=== PATIENT | female | born 1965 | race Two or more races ===

== ENCOUNTER 2023-12-10 10:31 | Inpatient (IN) | payer OTHER, MEDICAID ==
[~2023-12-10] VITALS: Ht 167.6 cm; Wt 91.0 kg
[2023-12-10] VITALS (9 sets, daily range): BP systolic 65–118; BP diastolic 22–69; PULSE 69–131; RESP 18; TEMP 97.8; O2SAT 97–100
[~2023-12-10 10:31] MED LIST: NITR-52 PO
[2023-12-10] MEDS: ETOMIDATE (2MG/ML) 20ML VIAL IV ONE ×2 (10:45→13:34)
[2023-12-10] MEDS: SODIUM CHLORIDE 0.9% 500 ML IVB ONE (10:45)
[2023-12-10] MEDS: NOREPINEPHRINE 8 MG/250ML KIT 250 ML IV ONE (11:18)
[2023-12-10] MEDS: SUCCINYLCHOLINE CHLORIDE 20 MG/ML 10ML VIAL IV ONE ×2 (11:19→13:35)
[2023-12-10 11:27] LABS: Basophils # (auto) 0 10 ^3/uL (0-0.2); Basophils % (auto) 0.2 % (0.0-2.0); Eosinophils # (auto) 0 10 ^3/uL (0-0.8); Eosinophils % (auto) 0.1 % (0.0-7.0); Hematocrit 47.2 % (36.0-46.0); Hemoglobin 15.6 g/dL (12.2-16.2); Lymphocytes # (auto) 1.3 10 ^3/uL (0.4-5.4); Lymphocytes % (auto) 6.1 % (10.0-50.0); Mean Corpuscular Hemoglobin 29.6 pg (28.0-32.0); Mean Corpuscular Volume 89.7 fL (80.0-100.0); Monocytes # (auto) 0.6 10 ^3/uL (0-1.3); Monocytes % (auto) 2.9 % (0.0-12.0); Neutrophils # (auto) 19.1 10 ^3/uL (1.6-8.6); Neutrophils % (auto) 90.7 % (37.0-80.0); Red Blood Cells 5.27 10^6/uL (4.0-5.20); Red Cell Distribution Width 13.3 % (11.8-14.3); White Blood Cell 21.1 10^3/uL (4.4-10.8)
[2023-12-10 11:45] LABS: Urine Bacteria None Seen /hpf (None Seen)
[2023-12-10] MEDS: fentaNYL Drip 2500mCg/250mlNS 250 ML IV SCH (12:00)
[2023-12-10] MEDS: NOREPINEPHRINE 8 MG/250ML KIT 250 ML IV SCH (12:00)
[2023-12-10] MEDS: SODIUM CHLORIDE 0.9% 1,000 ML IV ONE ×2 (12:00→13:23)
[2023-12-10 12:01] LABS: Alanine Aminotransferase 371 U/L (7-40); Alkaline Phosphatase 110 U/L (46-116); Anion Gap 15 (5-15); Aspartate Aminotransferase 414 U/L (13-40); BUN/Creatinine Ratio 14.4 (10.0-20.0); Blood Alcohol < 3.0 mg/dL (<10); Blood Urea Nitrogen 28 mg/dL (9-23); Calcium 10.5 mg/dL (8.5-10.1); Carbon Dioxide 21 mmol/L (20-30); Chloride 103 mmol/L (98-107); Glucose 144 mg/dL (74-106); Magnesium 2.3 mg/dL (1.6-2.6); Sodium 139 mmol/L (136-145)
[2023-12-10 12:02] LABS: Bilirubin, Total 0.4 mg/dL (0.2-1.0); Total Protein 6.3 g/dL (5.7-8.2)
[2023-12-10 12:10] LABS: Urine Blood Negative /uL (Negative); Urine Clarity Clear (Clear); Urine Color Yellow (Yellow); Urine Protein, UAD Negative (Negative); Urine Specific Gravity 1.015 (1.001-1.035); Urine Urobilinogen Normal (Negative); Urine WBC 6 /hpf (0 - 5)
[2023-12-10 12:16] LABS: Amphetamine Screen, Urine Neg (NEGATIVE); Barbiturate Scree,Urine Neg (NEGATIVE); Benzodiazephine Screen, Urine Neg (NEGATIVE); Cannabinoid Screen, Urine Neg (NEGATIVE); Cocaine Screen, Urine Neg (NEGATIVE); Opiate Scree,Urine Neg (NEGATIVE); Phencyclidine Screen, Urine Neg (NEGATIVE)
[2023-12-10 12:35] LABS: Base Excess -4.8 mmol/L (-2.0-2.0)
[2023-12-10 12:35] LABS: Lactic Acid w/Reflex 9.3 mmol/L (0.4-2.0)
[2023-12-10 12:36] LABS: Potassium 5.8 mmol/L (3.5-5.1)
[2023-12-10] MEDS: cefTRIAXone 1GM/50ML D5W 50 ML IV ONE ×2 (13:13→19:52)
[2023-12-10] MEDS: VANCOMYCIN 1GM/200ML 200 ML IV ONE (13:13)
[2023-12-10] MEDS ORDERED: NITROGLYCERIN 0.4 MG SL TAB SL PRN (14:45)
[2023-12-10] MEDS ORDERED: MORPHINE SULFATE INJ 2 MG/ml SYRG IV PRN (14:45)
[2023-12-10] MEDS ORDERED: ONDANSETRON HCL 4 MG/2 ML VIAL IV PRN (14:45)
[2023-12-10] MEDS: SODIUM CHLORIDE 0.9% 1,000 ML IV SCH (15:00)
[2023-12-10] MEDS: ENOXAPARIN SOD 80 MG/0.8ML SYRINGE SC ONE (18:22)
[2023-12-10 19:53] LABS: Triglycerides 62 mg/dL (< 150)
[2023-12-10 19:54] LABS: LDL Cholesterol 43 mg/dL (< 100)
[2023-12-10 19:55] LABS: Cholesterol 96 mg/dL (< 200); HDL Cholesterol 41 mg/dL (40-59)
[2023-12-10] MEDS: AZITHROMYCIN 500MG/ 250ML 250 ML IV ONE (20:32)
[2023-12-10] MEDS: ACETAMINOPHEN 650 MG RECT SUPP PR PRN (22:40)
[2023-12-11] VITALS (14 sets, daily range): BP systolic 78–115; BP diastolic 41–72; PULSE 80–133; RESP 18; O2SAT 96–100
[2023-12-11 00:15] LABS: COVID19 ANTIGEN SOFIA FIA NEGATIVE (NEGATIVE); Rapid Influenza A Negative (Negative); Rapid Influenza B Negative (Negative)
[2023-12-11] MEDS: PHENYLEPHRINE IV 250 ML IV SCH (00:46)
[2023-12-11] MEDS: PHENYLEPHRINE IV 250 ML IV ONE (00:46)
[2023-12-11 04:47] LABS: Basophils # (auto) 0.1 10 ^3/uL (0-0.2); Basophils % (auto) 0.2 % (0.0-2.0); Eosinophils # (auto) 0 10 ^3/uL (0-0.8); Eosinophils % (auto) 0.1 % (0.0-7.0); Hematocrit 47.6 % (36.0-46.0); Hemoglobin 16.1 g/dL (12.2-16.2); Lymphocytes # (auto) 1.3 10 ^3/uL (0.4-5.4); Lymphocytes % (auto) 4.7 % (10.0-50.0); Mean Corpuscular Hemoglobin 29.6 pg (28.0-32.0); Mean Corpuscular Hgb Conc. 33.8 g/dL (32.0-36.0); Mean Corpuscular Volume 87.7 fL (80.0-100.0); Monocytes # (auto) 0.5 10 ^3/uL (0-1.3); Monocytes % (auto) 1.7 % (0.0-12.0); Neutrophils % (auto) 93.3 % (37.0-80.0); Red Blood Cells 5.43 10^6/uL (4.0-5.20); Red Cell Distribution Width 13.5 % (11.8-14.3); White Blood Cell 26.8 10^3/uL (4.4-10.8)
[2023-12-11 05:06] LABS: Alanine Aminotransferase 770 U/L (7-40); Albumin 3.1 g/dL (3.2-4.8); Alkaline Phosphatase 91 U/L (46-116); Anion Gap 11 (5-15); Aspartate Aminotransferase 659 U/L (13-40); BUN/Creatinine Ratio 19.6 (10.0-20.0); Bilirubin, Total 0.4 mg/dL (0.2-1.0); Blood Urea Nitrogen 31 mg/dL (9-23); Carbon Dioxide 17 mmol/L (20-30); Chloride 110 mmol/L (98-107); Glucose 141 mg/dL (74-106); Potassium 2.9 mmol/L (3.5-5.1); Sodium 138 mmol/L (136-145); Total Protein 5.3 g/dL (5.7-8.2)
[2023-12-11 05:58] LABS: INR 1.49 (0.9-1.15); Partial Thromboplastin Time 46.9 SEC (24.5-34.5); Prothrombin Time 15.3 sec (9.3-11.8)
[2023-12-11 06:12] LABS: Base Excess -7.6 mmol/L (-2.0-2.0)
[2023-12-11] MEDS ORDERED: HEPARIN SODIUM (PORCINE) 5000 UNITS/ML 1ML VIAL IV ONE (06:30)
[2023-12-11] MEDS: HEPARIN DRIP/D5W 100UNITS/ML 250 ML IV SCH ×2 (07:01→16:08)
[2023-12-11] MEDS: POTASSIUM CHL 20MEQ/100ML 100 ML IV SCH (08:25)
[2023-12-11] MEDS: cefTRIAXone 1GM/50ML D5W 50 ML IV SCH (09:09)
[2023-12-11] MEDS ORDERED: VANCOMYCIN PER PHARMACY 0 MG IV SCH (09:45)
[2023-12-11] MEDS: PROPOFOL 100 ML IV SCH (09:45)
[2023-12-11] MEDS ORDERED: ENOXAPARIN SOD 80 MG/0.8ML SYRINGE SC SCH (10:00)
[2023-12-11] MEDS ORDERED: AZITHROMYCIN 500MG/ 250ML 250 ML IV SCH (10:00)
[2023-12-11] MEDS: EPINEPHrine HCL 250 ML IV SCH (10:24)
[2023-12-11] MEDS: VANCOMYCIN 1GM/200ML 200 ML IV SCH (10:35)
[2023-12-11] MEDS: methylPREDNISolone SOD SUCC 125 MG/2 ML VL IV SCH (10:57)
[2023-12-11] MEDS: PHENYLEPHRINE INJ 80 MG in SODIUM CHL 0.9% 242 ML IV SCH (11:48)
[2023-12-11] MEDS: NOREPINEPHRINE BITARTRATE 32 MG in SODIUM CHL 0.9% 218 ML IV SCH (11:49)
[2023-12-11] MEDS: PIPERACILLIN-TAZOB 3.375GM 100 ML IV SCH (14:29)
[2023-12-11 14:35] LABS: INR 1.73 (0.9-1.15); Prothrombin Time 17.6 sec (9.3-11.8)
[2023-12-11 14:39] LABS: Partial Thromboplastin Time > 139.0 SEC (24.5-34.5)
[2023-12-11] MEDS: MAGNESIUM SULFATE 1GM/100ML 100 ML IV ONE (15:32)
[2023-12-11 22:49] LABS: INR 1.45 (0.9-1.15)
[2023-12-11 22:54] LABS: Partial Thromboplastin Time > 139.0 SEC (24.5-34.5)
[2023-12-11] MEDS: HYDROCORTISONE SOD SUCC 100 MG/2ML INJ VIAL IV SCH (23:01)
[2023-12-11] MEDS: SODIUM CHLORIDE 0.9% 1,000 ML IV SCH (23:01)
[2023-12-11 23:35] LABS: Lactic Acid w/Reflex 2.2 mmol/L (0.4-2.0)
[2023-12-12] VITALS (14 sets, daily range): BP systolic 89–126; BP diastolic 56–76; PULSE 70–92; RESP 18–20; O2SAT 100
[2023-12-12] MEDS: HEPARIN DRIP/D5W 100UNITS/ML 250 ML IV SCH ×3 (00:15→15:15)
[2023-12-12 04:50] LABS: Red Blood Cells 5.32 10^6/uL (4.0-5.20)
[2023-12-12 04:51] LABS: Hematocrit 46.6 % (36.0-46.0); Hemoglobin 15.7 g/dL (12.2-16.2); Mean Corpuscular Hemoglobin 29.4 pg (28.0-32.0); Mean Corpuscular Hgb Conc. 33.6 g/dL (32.0-36.0); Mean Corpuscular Volume 87.5 fL (80.0-100.0); Red Cell Distribution Width 13.8 % (11.8-14.3)
[2023-12-12 05:08] LABS: Alanine Aminotransferase 579 U/L (7-40); Albumin 2.9 g/dL (3.2-4.8); Alkaline Phosphatase 115 U/L (46-116); Anion Gap 5 (5-15); Aspartate Aminotransferase 265 U/L (13-40); BUN/Creatinine Ratio 16.8 (10.0-20.0); Bilirubin, Total 0.4 mg/dL (0.2-1.0); Blood Urea Nitrogen 21 mg/dL (9-23); Calcium 8.1 mg/dL (8.5-10.1); Carbon Dioxide 18 mmol/L (20-30); Chloride 115 mmol/L (98-107); Glucose 149 mg/dL (74-106); Magnesium 2.3 mg/dL (1.6-2.6); Potassium 4.8 mmol/L (3.5-5.1); Sodium 138 mmol/L (136-145)
[2023-12-12 05:09] LABS: White Blood Cell 31.6 10^3/uL (4.4-10.8)
[2023-12-12 05:11] LABS: Basophils % (manual) 0 (0.0-2.0); Blast Cells 0; Eosinophils % (manual) 0 (0-7); Metamyelocytes % 0; Myelocytes % 0; Promyelocytes % 0; Reactive Lymphocytes 0
[2023-12-12 05:30] LABS: Band Neutrophils % (manual) 25; Lymphocytes % (manual) 5 (10.0-50.0); Monocytes % (manual) 5 (0-12); Platelet Estimate Adequate
[2023-12-12 06:35] LABS: INR 1.36 (0.9-1.15); Prothrombin Time 14.1 sec (9.3-11.8)
[2023-12-12 06:38] LABS: Base Excess -8.3 mmol/L (-2.0-2.0)
[2023-12-12 06:38] LABS: Partial Thromboplastin Time 90.6 SEC (24.5-34.5)
[2023-12-12] MEDS: MEROPENEM 1GM IVPB 50 ML IV SCH (13:21)
[2023-12-12 14:04] LABS: INR 1.32 (0.9-1.15); Prothrombin Time 13.7 sec (9.3-11.8)
[2023-12-12 14:05] LABS: Partial Thromboplastin Time 91.8 SEC (24.5-34.5)
[2023-12-12 21:41] LABS: INR 1.32 (0.9-1.15); Partial Thromboplastin Time 51.2 SEC (24.5-34.5); Prothrombin Time 13.7 sec (9.3-11.8)
[2023-12-13] VITALS (89 sets, daily range): BP systolic 86–153; BP diastolic 52–92; PULSE 50–99; RESP 17–20; TEMP 98.2–99.9; O2SAT 96–100
[2023-12-13 03:13] LABS: INR 1.33 (0.9-1.15); Partial Thromboplastin Time 51.1 SEC (24.5-34.5); Prothrombin Time 13.8 sec (9.3-11.8)
[2023-12-13 07:44] LABS: Base Excess -7.7 mmol/L (-2.0-2.0)
[2023-12-13 09:54] LABS: Basophils # (auto) 0 10 ^3/uL (0-0.2); Basophils % (auto) 0.1 % (0.0-2.0); Eosinophils # (auto) 0 10 ^3/uL (0-0.8); Hematocrit 41.4 % (36.0-46.0); Hemoglobin 13.6 g/dL (12.2-16.2); Lymphocytes # (auto) 1.1 10 ^3/uL (0.4-5.4); Lymphocytes % (auto) 3.9 % (10.0-50.0); Mean Corpuscular Hemoglobin 28.8 pg (28.0-32.0); Mean Corpuscular Hgb Conc. 32.8 g/dL (32.0-36.0); Mean Corpuscular Volume 87.9 fL (80.0-100.0); Monocytes # (auto) 0.7 10 ^3/uL (0-1.3); Monocytes % (auto) 2.6 % (0.0-12.0); Neutrophils # (auto) 25.7 10 ^3/uL (1.6-8.6); Neutrophils % (auto) 93.4 % (37.0-80.0); Nucleated Red Blood Cells % 0.1 %; Red Blood Cells 4.71 10^6/uL (4.0-5.20); White Blood Cell 27.5 10^3/uL (4.4-10.8)
[2023-12-13 10:11] LABS: INR 1.3 (0.9-1.15); Partial Thromboplastin Time 44.8 SEC (24.5-34.5); Prothrombin Time 13.5 sec (9.3-11.8)
[2023-12-13 10:23] LABS: Alanine Aminotransferase 436 U/L (7-40); Alkaline Phosphatase 124 U/L (46-116); Anion Gap 5 (5-15); Aspartate Aminotransferase 170 U/L (13-40); BUN/Creatinine Ratio 26.6 (10.0-20.0); Blood Urea Nitrogen 21 mg/dL (9-23); Calcium 8.5 mg/dL (8.5-10.1); Carbon Dioxide 22 mmol/L (20-30); Chloride 117 mmol/L (98-107); Glucose 127 mg/dL (74-106); Potassium 3.5 mmol/L (3.5-5.1); Sodium 144 mmol/L (136-145)
[2023-12-13 10:24] LABS: Albumin 2.9 g/dL (3.2-4.8); Bilirubin, Total 0.5 mg/dL (0.2-1.0)
[2023-12-13] MEDS: HEPARIN DRIP/D5W 100UNITS/ML 250 ML IV SCH (11:00)
[2023-12-13] MEDS: PANTOPRAZOLE 40 MG/10 ML VIAL INJ IV ONE (11:26)
[2023-12-13] MEDS: ENOXAPARIN SOD 40 MG/0.4 ML SYRINGE SC ONE (16:15)
[2023-12-13] MEDS ORDERED: LISI-285 PO (20:11)
[2023-12-13] MEDS ORDERED: GABA-339 PO (20:11)
[2023-12-13] MEDS ORDERED: BACL10TA PO (20:11)
[2023-12-13] MEDS ORDERED: ASCO500T11 PO (20:11)
[2023-12-13] MEDS ORDERED: NITR1SUS3 PO (20:11)
[2023-12-14] VITALS (103 sets, daily range): BP systolic 94–171; BP diastolic 54–111; PULSE 56–123; RESP 14–22; TEMP 98.4–99.7; O2SAT 96–100
[2023-12-14] MEDS: Jevity 1.2 Cal/Fiber 1 Liter GT SCH (02:31)
[2023-12-14 04:15] LABS: Basophils # (auto) 0 10 ^3/uL (0-0.2); Basophils % (auto) 0.1 % (0.0-2.0); Eosinophils # (auto) 0 10 ^3/uL (0-0.8); Hematocrit 37.5 % (36.0-46.0); Hemoglobin 12.7 g/dL (12.2-16.2); Lymphocytes # (auto) 1.4 10 ^3/uL (0.4-5.4); Lymphocytes % (auto) 8.5 % (10.0-50.0); Mean Corpuscular Hemoglobin 29.5 pg (28.0-32.0); Mean Corpuscular Hgb Conc. 33.8 g/dL (32.0-36.0); Mean Corpuscular Volume 87.1 fL (80.0-100.0); Monocytes # (auto) 0.6 10 ^3/uL (0-1.3); Monocytes % (auto) 3.8 % (0.0-12.0); Neutrophils # (auto) 14.5 10 ^3/uL (1.6-8.6); Neutrophils % (auto) 87.6 % (37.0-80.0); Nucleated Red Blood Cells % 0.1 %; Red Blood Cells 4.31 10^6/uL (4.0-5.20); Red Cell Distribution Width 14.1 % (11.8-14.3); White Blood Cell 16.6 10^3/uL (4.4-10.8)
[2023-12-14 04:33] LABS: Alanine Aminotransferase 343 U/L (7-40); Albumin 2.8 g/dL (3.2-4.8); Alkaline Phosphatase 104 U/L (46-116); Anion Gap 8 (5-15); Aspartate Aminotransferase 129 U/L (13-40); Bilirubin, Total 0.6 mg/dL (0.2-1.0); Blood Urea Nitrogen 23 mg/dL (9-23); Calcium 8.7 mg/dL (8.7-10.4); Carbon Dioxide 20 mmol/L (20-30); Chloride 119 mmol/L (98-107); Glucose 93 mg/dL (74-106); Potassium 3.1 mmol/L (3.5-5.1); Sodium 147 mmol/L (136-145); Total Protein 4.9 g/dL (5.7-8.2)
[2023-12-14] MEDS: POTASSIUM CHL 20MEQ/100ML 100 ML IV ONE (06:43)
[2023-12-14 08:00] LABS: Base Excess -4.4 mmol/L (-2.0-2.0)
[2023-12-14] MEDS: PANTOPRAZOLE 40 MG/10 ML VIAL INJ IV SCH (10:31)
[2023-12-14] MEDS: FUROSEMIDE 20 MG/2 ML VIAL IV SCH (10:32)
[2023-12-14] MEDS: ENOXAPARIN SOD 40 MG/0.4 ML SYRINGE SC SCH (10:32)
[2023-12-14] MEDS: POTASSIUM CHL 20MEQ/100ML 100 ML IV SCH (10:36)
[2023-12-14] MEDS: POTASSIUM EFFERVESENT TAB 25 MEQ GT ONE (14:15)
[2023-12-14] MEDS: FREE WATER GT SCH (14:23)
[2023-12-14] MEDS: SODIUM CHLOR 0.9% PF (SALINE LOCK) 10ML VIAL/SYR IV SCH (22:00)
[2023-12-14] MEDS ORDERED: dilTIAZem 25 MG/5 ML VIAL IV ONE (23:00)
[2023-12-15] VITALS (106 sets, daily range): BP systolic 123–179; BP diastolic 73–121; PULSE 85–146; RESP 7–22; TEMP 98.4–100.2; O2SAT 92–100
[2023-12-15 03:59] LABS: Basophils # (auto) 0 10 ^3/uL (0-0.2); Basophils % (auto) 0.1 % (0.0-2.0); Eosinophils # (auto) 0 10 ^3/uL (0-0.8); Eosinophils % (auto) 0.3 % (0.0-7.0); Hematocrit 36.5 % (36.0-46.0); Hemoglobin 12.5 g/dL (12.2-16.2); Lymphocytes # (auto) 1.3 10 ^3/uL (0.4-5.4); Mean Corpuscular Hemoglobin 29.5 pg (28.0-32.0); Mean Corpuscular Hgb Conc. 34.3 g/dL (32.0-36.0); Mean Corpuscular Volume 86.2 fL (80.0-100.0); Monocytes # (auto) 0.6 10 ^3/uL (0-1.3); Monocytes % (auto) 5.4 % (0.0-12.0); Neutrophils # (auto) 8.6 10 ^3/uL (1.6-8.6); Neutrophils % (auto) 82.2 % (37.0-80.0); Red Blood Cells 4.23 10^6/uL (4.0-5.20); Red Cell Distribution Width 13.8 % (11.8-14.3); White Blood Cell 10.4 10^3/uL (4.4-10.8)
[2023-12-15] MEDS: ACETAMINOPHEN 325 MG TAB PO PRN (04:04)
[2023-12-15 04:24] LABS: Alanine Aminotransferase 227 U/L (7-40); Albumin 2.8 g/dL (3.2-4.8); Alkaline Phosphatase 92 U/L (46-116); Anion Gap 6 (5-15); Aspartate Aminotransferase 91 U/L (13-40); Blood Urea Nitrogen 21 mg/dL (9-23); Calcium 8.7 mg/dL (8.7-10.4); Carbon Dioxide 24 mmol/L (20-30); Chloride 117 mmol/L (98-107); Glucose 114 mg/dL (74-106); Magnesium 1.8 mg/dL (1.6-2.6); Sodium 147 mmol/L (136-145)
[2023-12-15 04:25] LABS: Bilirubin, Total 0.9 mg/dL (0.2-1.0); Total Protein 4.8 g/dL (5.7-8.2)
[2023-12-15] MEDS: dilTIAZem 25 MG/5 ML VIAL IV ONE (05:52)
[2023-12-15] MEDS: POTASSIUM CHL 20MEQ/100ML 100 ML IV ONE (06:22)
[2023-12-15] MEDS: POTASSIUM CHL 20MEQ/100ML 100 ML IV SCH (08:55)
[2023-12-15] MEDS: MAGNESIUM SULFATE 1GM/100ML 100 ML IV ONE (08:55)
[2023-12-15] MEDS: hydrALAZINE HCL 20 MG/ML VL IV PRN (09:11)
[2023-12-15 09:16] LABS: Base Excess -2.8 mmol/L (-2.0-2.0)
[2023-12-15] MEDS: LABETALOL HCL 5 MG/ML ML 20ML VIAL IV PRN (11:47)
[2023-12-15] MEDS ORDERED: FLUCONAZOLE 100 MG TAB PO ONE (17:00)
[2023-12-15] MEDS ORDERED: FLUCONAZOLE 200MG/100ML 100 ML IV SCH (18:00)
[2023-12-15] MEDS: FREE WATER GT SCH (18:33)
[2023-12-15] MEDS: FLUCONAZOLE 200MG/100ML 100 ML IV ONE (18:42)
[2023-12-15] MEDS: CIPROFLOXACIN 0.3%OPTH(EYE) SOL 5ML LEFTEYE SCH (18:49)
[2023-12-16] VITALS (66 sets, daily range): BP systolic 123–158; BP diastolic 74–104; PULSE 83–128; RESP 6–21; TEMP 99–99.9; O2SAT 97–100
[2023-12-16 04:31] LABS: Hematocrit 38.8 % (36.0-46.0); Mean Corpuscular Hgb Conc. 33.5 g/dL (32.0-36.0); Mean Corpuscular Volume 86.7 fL (80.0-100.0); Red Blood Cells 4.48 10^6/uL (4.0-5.20); Red Cell Distribution Width 14.4 % (11.8-14.3); White Blood Cell 15.5 10^3/uL (4.4-10.8)
[2023-12-16 04:33] LABS: Anion Gap 7 (5-15); Carbon Dioxide 27 mmol/L (20-30); Chloride 114 mmol/L (98-107); Potassium 3.4 mmol/L (3.5-5.1); Sodium 148 mmol/L (136-145)
[2023-12-16 04:34] LABS: Calcium 8.9 mg/dL (8.5-10.1)
[2023-12-16 04:35] LABS: Basophils % (manual) 0 (0.0-2.0); Blast Cells 0; Eosinophils % (manual) 0 (0-7); Metamyelocytes % 0; Myelocytes % 0; Promyelocytes % 0
[2023-12-16 04:39] LABS: BUN/Creatinine Ratio 54.1 (10.0-20.0); Blood Urea Nitrogen 20 mg/dL (9-23); Glucose 106 mg/dL (74-106)
[2023-12-16 05:38] LABS: Band Neutrophils % (manual) 16; Lymphocytes % (manual) 18 (10.0-50.0); Monocytes % (manual) 2 (0-12); Reactive Lymphocytes 2
[2023-12-16 05:39] LABS: Platelet Estimate Adequate
[2023-12-16 07:26] LABS: Bilirubin, Direct 0.3 mg/dL (<0.3); Bilirubin, Total 0.6 mg/dL (0.2-1.0); Total Protein 5.2 g/dL (5.7-8.2)
[2023-12-16] MEDS: POTASSIUM CHL 20MEQ/100ML 100 ML IV ONE (09:52)
[2023-12-16] MEDS ORDERED: FLUCONAZOLE 100 MG TAB PO SCH (10:00)
[2023-12-16] MEDS: LIDOCAINE 1% (LOCAL ANESTH.) PF 5ml SDV ID ONE (13:51)
[2023-12-16] MEDS: ARTIFICIAL TEARS 15ml EACHEYE PRN (13:58)
[2023-12-16] MEDS: LABETALOL HCL 5 MG/ML ML 20ML VIAL IV PRN (16:44)
[2023-12-16] MEDS: FLUCONAZOLE 200MG/100ML 100 ML IV SCH (17:35)
[2023-12-16] MEDS: ERTAPENEM SOD INJ 1 GM in SODIUM CHL 0.9% 50 ML IV SCH (21:26)
[2023-12-17] VITALS (52 sets, daily range): BP systolic 113–155; BP diastolic 75–101; PULSE 89–114; RESP 4–20; TEMP 98.8–99.5; O2SAT 97–100
[2023-12-17 05:31] LABS: Alanine Aminotransferase 104 U/L (7-40); Albumin 2.9 g/dL (3.2-4.8); Alkaline Phosphatase 113 U/L (46-116); Anion Gap 2 (5-15); Aspartate Aminotransferase 57 U/L (13-40); BUN/Creatinine Ratio 47.7 (10.0-20.0); Bilirubin, Total 0.5 mg/dL (0.2-1.0); Blood Urea Nitrogen 21 mg/dL (9-23); Calcium 9.2 mg/dL (8.7-10.4); Carbon Dioxide 32 mmol/L (20-30); Chloride 113 mmol/L (98-107); Glucose 121 mg/dL (74-106); Potassium 3.9 mmol/L (3.5-5.1); Sodium 147 mmol/L (136-145); Total Protein 5.1 g/dL (5.7-8.2)
[2023-12-17 05:38] LABS: Basophils # (auto) 0 10 ^3/uL (0-0.2); Basophils % (auto) 0.1 % (0.0-2.0); Eosinophils # (auto) 0.1 10 ^3/uL (0-0.8); Eosinophils % (auto) 0.4 % (0.0-7.0); Hematocrit 38.4 % (36.0-46.0); Hemoglobin 12.7 g/dL (12.2-16.2); Lymphocytes # (auto) 1.6 10 ^3/uL (0.4-5.4); Lymphocytes % (auto) 10.1 % (10.0-50.0); Mean Corpuscular Hgb Conc. 33.1 g/dL (32.0-36.0); Mean Corpuscular Volume 87.5 fL (80.0-100.0); Monocytes # (auto) 1.1 10 ^3/uL (0-1.3); Neutrophils # (auto) 13.2 10 ^3/uL (1.6-8.6); Neutrophils % (auto) 82.4 % (37.0-80.0); Nucleated Red Blood Cells % 0.1 %; Red Blood Cells 4.39 10^6/uL (4.0-5.20); Red Cell Distribution Width 14.1 % (11.8-14.3)
[2023-12-17] MEDS: Jevity 1.2 Cal/Fiber 1 Liter GT SCH (20:52)
[2023-12-18] VITALS (25 sets, daily range): BP systolic 105–131; BP diastolic 68–92; PULSE 86–116; RESP 6–14; TEMP 98.6–100.2; O2SAT 97–100
[2023-12-18 06:58] LABS: Basophils # (auto) 0 10 ^3/uL (0-0.2); Basophils % (auto) 0.1 % (0.0-2.0); Eosinophils # (auto) 0.1 10 ^3/uL (0-0.8); Eosinophils % (auto) 0.6 % (0.0-7.0); Hematocrit 33.6 % (36.0-46.0); Hemoglobin 11.3 g/dL (12.2-16.2); Lymphocytes # (auto) 1.1 10 ^3/uL (0.4-5.4); Mean Corpuscular Hemoglobin 29.8 pg (28.0-32.0); Mean Corpuscular Hgb Conc. 33.7 g/dL (32.0-36.0); Mean Corpuscular Volume 88.4 fL (80.0-100.0); Monocytes # (auto) 0.8 10 ^3/uL (0-1.3); Monocytes % (auto) 6.9 % (0.0-12.0); Neutrophils # (auto) 9.3 10 ^3/uL (1.6-8.6); Neutrophils % (auto) 82.4 % (37.0-80.0); Nucleated Red Blood Cells % 0.1 %; Red Blood Cells 3.81 10^6/uL (4.0-5.20); Red Cell Distribution Width 14.2 % (11.8-14.3); White Blood Cell 11.2 10^3/uL (4.4-10.8)
[2023-12-18 07:25] LABS: Alanine Aminotransferase 68 U/L (7-40); Albumin 2.7 g/dL (3.2-4.8); Alkaline Phosphatase 116 U/L (46-116); Anion Gap 4 (5-15); Aspartate Aminotransferase 44 U/L (13-40); BUN/Creatinine Ratio 62.1 (10.0-20.0); Blood Urea Nitrogen 18 mg/dL (9-23); Calcium 8.6 mg/dL (8.5-10.1); Carbon Dioxide 32 mmol/L (20-30); Chloride 112 mmol/L (98-107); Glucose 102 mg/dL (74-106); Potassium 3.4 mmol/L (3.5-5.1); Sodium 148 mmol/L (136-145)
[2023-12-18 07:26] LABS: Bilirubin, Total 0.4 mg/dL (0.2-1.0); Total Protein 4.7 g/dL (5.7-8.2)
[2023-12-18] MEDS: POTASSIUM EFFERVESENT TAB 25 MEQ GT ONE (12:47)
[2023-12-18] MEDS: LACTULOSE 20Gm/30ML SOLN PO ONE (12:47)
== END 2023-12-18 19:00 | disposition short-term general hospital (02) | DRG 870 ==
LOC: EDBD 10:31 → ER 10:31 → TELE 14:41 → ICU WEST 12-13 05:05 → DOU IN ICU 12-17 01:40
PROVIDERS: ADMIT Internal Medicine Pulmonary Disease; ATTEND Internal Medicine Pulmonary Disease
PROC: 0BH17EZ Insertion of Endotracheal Airway into Trachea, Via Natural or Artificial Opening (ICD-10-PCS; principal; 2023-12-10)
PROC: 5A1955Z Respiratory Ventilation, Greater than 96 Consecutive Hours (ICD-10-PCS; 2023-12-10)
PROC: 02HV33Z Insertion of Infusion Device into Superior Vena Cava, Percutaneous Approach (ICD-10-PCS; 2023-12-14)
PROC: B548ZZA Ultrasonography of Superior Vena Cava, Guidance (ICD-10-PCS; 2023-12-14)
DX: A41.59 Other Gram-negative sepsis (principal); G92.8 Other toxic encephalopathy; J18.9 Pneumonia, unspecified organism; I21.A1 Myocardial infarction type 2; J96.01 Acute respiratory failure with hypoxia; R65.21 Severe sepsis with septic shock; N17.0 Acute kidney failure with tubular necrosis; E87.20 Acidosis, unspecified; N39.0 Urinary tract infection, site not specified; E66.9 Obesity, unspecified; Z20.822 Contact with and (suspected) exposure to COVID-19; E87.5 Hyperkalemia; G35 Multiple sclerosis; I10 Essential (primary) hypertension; E87.6 Hypokalemia; K59.00 Constipation, unspecified; R74.01 Elevation of levels of liver transaminase levels; Z74.01 Bed confinement status; Z68.32 Body mass index [BMI] 32.0-32.9, adult; Z79.899 Other long term (current) drug therapy
CPT/HCPCS: 31500; 36415; 36569; 36600; 70450; 71045; 80048; 80053; 80061; 80076; 80202; 80307; 80320; 81001; 82805; 82962; 83036; 83605; 83735; 83880; 84132; 84443; 84484; 85007; 85025; 85027; 85610; 85730; 87040; 87070; 87077; 87081; 87086; 87088; 87186; 87205; 87426; 87804; 92610; 93005; 93306; 94002; 94003; 97163; 99291; C9113; G0378; J0171; J0330; J1335; J1450; J2185; J2543; J3480